=== PATIENT | female | born 1985 | race African-American/Black ===

== ENCOUNTER 2020-03-09 14:35 | Emergency (ER) | payer OTHER ==
[2020-03-09 14:45] VITALS: BP 117/75; PULSE 89; TEMP 98; BMI 46.3
[2020-03-09 18:17] LABS: BASO % 2.6 % (0-2.0); HEMATOCRIT 32.8 % (32.4-45.2); HEMOGLOBIN 10.7 GM/dl (10.7-15.3); LYMPH % 23.6 % (8-40); MCH 26.7 pg (25.7-33.7); MCHC 32.5 g/dl (32.0-36.0); MEAN CELL VOLUME 82.4 fl (80-96); MEAN PLT VOLUME 8.6 fl (7.5-11.1); MONO % 6.2 % (3.8-10.2); NEUT % 66.6 % (42.8-82.8); PLATELET COUNT 313 K/MM3 (134-434); RBC 3.99 M/mm3 (3.60-5.2); RDW 14.4 % (11.6-15.6); WHITE BLOOD COUNT 9.2 K/mm3 (4.0-10.8)
[2020-03-09 18:28] LABS: ALBUMIN 3.2 g/dl (3.4-5.0); BILIRUBIN,TOTAL 0.4 mg/dl (0.2-1); CALCIUM 8.6 mg/dl (8.5-10); CREATININE 0.5 mg/dl (0.55-1.3); TOT PROT 7.2 g/dl (6.4-8.2)
== END 2020-03-09 20:24 | disposition home or self-care (01) ==
LOC: FER 14:35
DX: O20.8 Other hemorrhage in early pregnancy (principal); R60.9 Edema, unspecified; O03.9 Complete or unspecified spontaneous abortion without complication
CPT/HCPCS: 36415; 76815-TC; 80053; 81003; 84702; 85025; 86850; 86900; 86901; 87086; 93971-TC; 99284-25

== ENCOUNTER 2022-04-05 18:34 | Emergency (ER) | payer OTHER ==
[2022-04-05 18:57] VITALS: BP 117/75; PULSE 97; RESP 18; TEMP 98; BMI 46.0
[2022-04-05] MEDS ORDERED: KETOROLAC TROMETHAMINE 30 MG/1 ML VIAL IM ONE (20:15)
[2022-04-05] MEDS ORDERED: KETOROLAC TROMETHAMINE 30 MG/1 ML VIAL ONE (20:19)
== END 2022-04-05 22:56 | disposition home or self-care (01) ==
LOC: JERFT 18:34 → JER 18:34 → JERFT 22:56
PROC: 3E023GC Introduction of Other Therapeutic Substance into Muscle, Percutaneous Approach (ICD-10-PCS; principal; 2022-04-05)
DX: S02.2XXA Fracture of nasal bones, initial encounter for closed fracture (principal); V49.40XA Driver injured in collision with unspecified motor vehicles in traffic accident, initial encounter
CPT/HCPCS: 70486-TC; 99284-25